=== PATIENT | male | born 1935 | race Caucasian/White ===

== ENCOUNTER → 2020-04-04 | Outpatient (CLI) | payer OTHER ==
[~2020-04-04] MED LIST: ASPIRIN81 M2; BETAPACE AF80 MG PO; DIFLORASONE DIA30 GM; HYDROXYZINE HCL25 M1; LOCOID 0.1% CRE15 GM; NAPROSYN500 MG PO; NEXIUM 40 MG CA40 M1; NORCO 5-325 TA1 EACH PO; SORINE 80 MG TA80 M1; TAMSULOSIN HCL0.4 M1 PO; TRILIPIX135 MG; ZOFRAN ODT4 MG PO
== END ==
LOC: SJCVCIMAG 08:56
PROVIDERS: ATTEND Internal Medicine
DX: R94.31 Abnormal electrocardiogram [ECG] [EKG] (principal); I08.8 Other rheumatic multiple valve diseases; I28.1 Aneurysm of pulmonary artery; I10 Essential (primary) hypertension; I65.23 Occlusion and stenosis of bilateral carotid arteries; I49.3 Ventricular premature depolarization; G47.33 Obstructive sleep apnea (adult) (pediatric); Z95.2 Presence of prosthetic heart valve; Z86.79 Personal history of other diseases of the circulatory system; Z90.49 Acquired absence of other specified parts of digestive tract; Z79.899 Other long term (current) drug therapy

== ENCOUNTER 2020-10-02 11:33 | Emergency (ER) | payer OTHER ==
[~2020-10-02] VITALS: Ht 175.3 cm; Wt 81.7 kg
[2020-10-02 12:36] LABS: APTT 25.5 Seconds (24.5-32.8); PROTIME 10.6 Seconds (9.3-11.4)
[2020-10-02 12:40] LABS: ANION GAP 7 mmol/L (7-16); BUN 24 mg/dL (7-18); CALCIUM 8.7 mg/dL (8.5-10.1); CHLORIDE 106 mmol/L (98-107); CO2 27 mmol/L (21-32); CREATININE 1.2 mg/dL (0.7-1.3); GLUCOSE 117 mg/dL (74-106); POTASSIUM 3.8 mmol/L (3.5-5.1); SODIUM 140 mmol/L (136-145)
[2020-10-02 12:42] LABS: ALBUMIN 2.7 g/dL (3.4-5.0); DIRECT BILIRUBIN 0.1 mg/dL (<0.1-0.2); LIPASE 101 U/L (73-393); SGOT 22 U/L (15-37); SGPT 28 U/L (30-65); TOTAL BILIRUBIN 0.6 mg/dL (0.2-1.0); TOTAL PROTEIN 6.3 g/dL (6.4-8.2); TROPONIN-I <0.06 ng/mL (<0.06)
[2020-10-02] MEDS ORDERED: TAMSULOSIN HCL0.4 MG PO (12:49)
[2020-10-02] MEDS ORDERED: LOPRESSOR50 PO (12:49)
--- NOTE | 2020-10-02 12:49 | EKG ---
[facility] [place] [address] ELECTROCARDIOGRAM REPORT Name: AILYNALYCIAJONISTELLA W Room #: PRE [facility]..#: [id number] Admission: Attend Phys: Discharge: Date of : 35 Report #: [id number] THIS REPORT FOR: cc: Dano XIE,Roland Matson II,Roland Aguilar,Dmitri SANTOS [facility] ~ THIS REPORT FOR: //name// [facility] ED Test Date: 2020-10-02 Test Time: 11:42:27 Pat Name: STELLA GLORIA Department: Room: Gender: M Manager Acute: KARTHIKEYAN : 1935 Requested By: Camille Uribe Order Number: [id number] MD: Dmitri Aguilar Measurements Intervals Mentor Rate: 69 P: -2 SD: 216 QRS: -44 QRSD: 137 T: 56 QT: 431 QTc: 462 Interpretive Statements Sinus rhythm Borderline prolonged SD interval Nonspecific IVCD with LAD Probable anteroseptal infarct, old Baseline wander in lead(s) V4 Compared to ECG 10/21/2012 11:29:41 Intraventricular conduction delay now present Myocardial infarct finding now present Sinus bradycardia no longer present Left-axis deviation no longer present Left ventricular hypertrophy no longer present Electronically Signed On 10-02-2020 12:49:34 PIN STICKER by Dmitri Aguilar [email or web address] <ELECTRONICALLY SIGNED> By: Dmitri Aguilar MD, FACC 10/02/20 1249 1142 1142 Dmitri Aguilar MD, [facility] /EPI
[2020-10-02] MEDS ORDERED: IRBESARTAN-HCT1 EACH PO (12:50)
[2020-10-02 15:29] LABS: ABSOLUTE NEUTROPHILS 3.5 thou/uL (1.4-8.2); BASOPHILS 0.2 % (0.0-2.0); EOSINOPHILS 3.7 % (0.0-3.0); HEMATOCRIT 37.9 % (42.0-52.0); HEMOGLOBIN 12.8 gm/dL (14.0-18.0); LYMPHOCYTES 18.6 % (24.0-44.0); MCH 32.5 pg (26.0-34.0); MCHC 33.9 g/dL (28.0-37.0); MONOCYTES 11.5 % (1.0-8.0); PLATELET COUNT 162 thou/uL (150-400); RBC 3.95 mil/uL (4.50-6.00); RDW 12.6 % (10.5-14.5); WBC 5.4 thou/uL (4.0-11.0)
[2020-10-02] MEDS ORDERED: KLOR-CON 1010 MEQ PO (16:12)
[2020-10-02] MEDS ORDERED: LASIX 20 MG TAB20 MG PO (16:12)
[2020-10-02 16:57] VITALS: BP 127/51
== END 2020-10-02 16:57 | disposition home or self-care (01) ==
LOC: ER 11:33
PROVIDERS: Nurse Practitioner Family
DX: I11.0 Hypertensive heart disease with heart failure (principal); I50.9 Heart failure, unspecified; Z90.49 Acquired absence of other specified parts of digestive tract; Z79.82 Long term (current) use of aspirin; Z79.899 Other long term (current) drug therapy; Z20.828 Contact with and (suspected) exposure to other viral communicable diseases

== ENCOUNTER → 2020-10-04 | Outpatient (CLI) | payer OTHER ==
[~2020-10-04] MED LIST changes: +IRBESARTAN-HCT1 EACH PO; +KLOR-CON 1010 MEQ PO; +LASIX 20 MG TAB20 MG PO; +LOPRESSOR50 PO; +TAMSULOSIN HCL0.4 MG PO
== END ==
LOC: SJCVCIMAG 13:40
PROVIDERS: ATTEND Internal Medicine
DX: I08.8 Other rheumatic multiple valve diseases (principal); R94.31 Abnormal electrocardiogram [ECG] [EKG]; I45.4 Nonspecific intraventricular block; I28.1 Aneurysm of pulmonary artery; I11.9 Hypertensive heart disease without heart failure; E78.5 Hyperlipidemia, unspecified; I65.23 Occlusion and stenosis of bilateral carotid arteries; I49.3 Ventricular premature depolarization; G47.33 Obstructive sleep apnea (adult) (pediatric); Z95.2 Presence of prosthetic heart valve; Z79.82 Long term (current) use of aspirin; Z86.79 Personal history of other diseases of the circulatory system; Z79.899 Other long term (current) drug therapy

== ENCOUNTER → 2020-10-25 | Outpatient (CLI) | payer OTHER ==
[~2020-10-25] MED LIST changes: +KLOR-CON M2020 MEQ PO; +TORSEMIDE20 MG PO
== END ==
LOC: LAB 09:31
PROVIDERS: ATTEND Internal Medicine
DX: Z01.812 Encounter for preprocedural laboratory examination (principal); J02.9 Acute pharyngitis, unspecified; Z20.828 Contact with and (suspected) exposure to other viral communicable diseases

== ENCOUNTER → 2020-10-30 | Outpatient (CLI) | payer OTHER ==
[~2020-10-30] VITALS: Ht 175.3 cm; Wt 76.7 kg
[2020-10-30 06:59] VITALS: BP 126/101
--- NOTE | 2020-10-30 08:53 | TEE ---
[email or web address] [address] TRANSESOPHAGEAL ECHOCARDIOGRAM Name: STELLA GLORIA Room #: REG GENO GonzalesSung#: [id number] Admission: 10/30/20 Attend Phys: Kayode Tinoco MD, Discharge: Date of : 35 Report #: [id number] THIS REPORT FOR: cc: Dano XIE,Roland Matson II,Roland Tinoco,Kayode Rain MD [facility] ~ APPROVED REPORT Study performed: 10/30/2020 07:49:24 EXAM: Transesophageal Echocardiogram Patient Location: Out-Patient Status: routine BSA: 1.93 HR: 83 bpm BP: 103/46 mmHg Rhythm: NSR Other Information Study Quality: Good Indications Aortic Valve Disease Mitral Valve Disease Procedure After obtaining informed consent, patient underwent transesophageal echo in the Obstetrics/Gynecology Nurse Holding. Type of Sedation : Conscious Sedation Sedation was administered by RN. Mellisa. Sedation was achieved intravenously with: Versed (3) Fentanyl (50) Transesophageal probe was inserted and advanced into esophagus without difficulty by Kayode Tinoco MD. Echo enhancement indication: R/O Septal defect. Echo enhancement agent administered: Agitated Saline The NATALIO was performed without complications. Throughout the procedure, the blood pressure, pulse oximetry, cardiac rhythm, and rate were monitored. The patient tolerated the procedure without adverse effects. Recovery from conscious sedation was uneventful and vital signs were stable. Left Ventricle [facility] [address] [place] [address] TRANSESOPHAGEAL ECHOCARDIOGRAM Name: STELLA GLORIA Room #: REG [facility]#: [id number] Admission: 10/30/20 Attend Phys: Kayode Tinoco, Discharge: Date of : 35 Report #: [id number] The left ventricle is normal size. There is normal LV segmental wall motion. Mild concentric left ventricular hypertrophy. Left ventricular systolic function is normal. LVEF is 60%. Right Ventricle The right ventricle is normal size. The right ventricular systolic function is normal. Atria Left atrium is dilated. No thrombus is visualized in the left atrium or appendage. No shunting noted with contrast bubble injection. Right atrium is mildly dilated. Aortic Valve #23mm Trifecta bioprosthetic aortic valve, thickened leaflets. Very small mobile echodensity adherent to valve, cannot rule out vegetation (Image 24, frame 11-13) Moderate to severe aortic regurgitation Mitral Valve The mitral valve is normal in structure. Moderate to severe central mitral regurgitation No evidence of mitral valve stenosis. Tricuspid Valve The tricuspid valve is normal in structure. Mild tricuspid regurgitation. Pulmonic Valve The pulmonary valve is normal in structure. Mild pulmonic regurgitation. Great Vessels The ascending aorta is mildly dilated (3.9cm). Mild atherosclerotic plaquing in the descending aorta. IVC is normal in size and collapses >50% with inspiration. 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 Pericardium There is no pericardial effusion. <Conclusion> Left ventricular systolic function is normal. There is normal LV segmental wall motion. LVEF 60%. Left atrium is dilated. No thrombus in the left atrium or appendage. No shunting noted with [facility] [address] [place] [address] TRANSESOPHAGEAL ECHOCARDIOGRAM Name: STELLA GLORIA Room #: REG [facility].#: [id number] Admission: 10/30/20 Attend Phys: Kayode Tinoco, Discharge: Date of : 35 Report #: [id number] contrast bubble injection. #23mm Trifecta bioprosthetic aortic valve, thickened leaflets. Very small mobile echodensity adherent to valve, cannot rule out vegetation (Image 24, frames 11-13) Moderate to severe aortic regurgitation The mitral valve is normal in structure. Moderate to severe central mitral regurgitation The ascending aorta is mildly dilated (3.9cm). 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 There is no pericardial effusion. <ELECTRONICALLY SIGNED> By: Kayode Tinoco MD, FACC 10/30/20851 1 1 Kayode Tinoco MD, FACC /INF
[2020-10-30 09:10] LABS: ABSOLUTE NEUTROPHILS 4.2 thou/uL (1.4-8.2); BASOPHILS 0.9 % (0.0-2.0); EOSINOPHILS 2.9 % (0.0-3.0); HEMATOCRIT 37.7 % (42.0-52.0); HEMOGLOBIN 12.4 gm/dL (14.0-18.0); LYMPHOCYTES 15.7 % (24.0-44.0); MCH 31.3 pg (26.0-34.0); MCHC 32.7 g/dL (28.0-37.0); MCV 95.7 fL (80.0-100.0); MONOCYTES 8.2 % (1.0-8.0); PLATELET COUNT 120 thou/uL (150-400); POLYS 72.3 % (36.0-66.0); RBC 3.94 mil/uL (4.50-6.00); RDW 12.3 % (10.5-14.5); WBC 5.8 thou/uL (4.0-11.0)
[2020-10-30 09:33] LABS: ALBUMIN 2.8 g/dL (3.4-5.0); ANION GAP 10 mmol/L (7-16); BUN 42 mg/dL (7-18); CALCIUM 8.4 mg/dL (8.5-10.1); CHLORIDE 109 mmol/L (98-107); CO2 24 mmol/L (21-32); CREATININE 1.3 mg/dL (0.7-1.3); GLUCOSE 99 mg/dL (74-106); POTASSIUM 4.3 mmol/L (3.5-5.1); SGOT 22 U/L (15-37); SGPT 22 U/L (30-65); SODIUM 143 mmol/L (136-145); TOTAL BILIRUBIN 0.4 mg/dL (0.2-1.0); TOTAL PROTEIN 6.2 g/dL (6.4-8.2)
== END | disposition home or self-care (01) ==
LOC: CATH 06:25
PROVIDERS: ATTEND Internal Medicine
DX: I08.3 Combined rheumatic disorders of mitral, aortic and tricuspid valves (principal); I70.0 Atherosclerosis of aorta; I11.0 Hypertensive heart disease with heart failure; I50.9 Heart failure, unspecified; E78.00 Pure hypercholesterolemia, unspecified; K21.9 Gastro-esophageal reflux disease without esophagitis; Z98.890 Other specified postprocedural states; Z79.899 Other long term (current) drug therapy; Z79.82 Long term (current) use of aspirin; Z90.49 Acquired absence of other specified parts of digestive tract; Z87.442 Personal history of urinary calculi; Z95.1 Presence of aortocoronary bypass graft; Z87.891 Personal history of nicotine dependence

== ENCOUNTER → 2020-11-30 | Outpatient (CLI) | payer OTHER | LOC: SJCVC 10:58 | PROVIDERS: ATTEND Internal Medicine | DX: G47.33 Obstructive sleep apnea (adult) (pediatric) (principal); I10 Essential (primary) hypertension; E78.5 Hyperlipidemia, unspecified; E78.00 Pure hypercholesterolemia, unspecified ==

== ENCOUNTER → 2020-11-30 | Outpatient (CLI) | payer OTHER ==
[~2020-11-30] MED LIST changes: +NEXIUM 40 MG CA40 M1 PO
== END ==
LOC: LAB 08:49
PROVIDERS: ATTEND Internal Medicine
DX: Z01.812 Encounter for preprocedural laboratory examination (principal); R06.02 Shortness of breath; Z20.822 Contact with and (suspected) exposure to COVID-19

== ENCOUNTER → 2020-12-05 | Outpatient (CLI) | payer OTHER ==
[~2020-12-05] VITALS: Ht 175.3 cm; Wt 77.1 kg
[2020-12-05 06:55] VITALS: BP 120/47
--- NOTE | 2020-12-05 08:53 | CATHLAB ---
[facility] [place] [address] INVASIVE PROCEDURE REPORT Name: STELLA GLORIA Room #: REG GENO Bee#: [id number] Admission: 12/05/20 Attend Phys: Kayode Tinoco MD, Discharge: Date of : 35 Report #: [id number] THIS REPORT FOR: cc: Dano XIE,Roland Matson II,Roland Tinoco,Kayode Rain MD [facility] ~ APPROVED REPORT Study performed: 12/05/2020 07:35:58 Patient Details Patient Status: Out-Patient Room #: The patient is a 85 year-old male Event Personnel Kayode Tinoco University Archivist, Faustina Ortiz RN RN, Rachna Vera Monitor, [place] RTR Scrub Procedures Performed Art Access - R femoral artery* 83339 Initial Mod Sed Same Phys/QHP Gr5y 785775 Coronary Angiography Only [id number] CORANG Supravalvular Aortography Injection [id number] ISVA Hemostasis w/ Mynx Indication Valvular heart disease Procedure Narrative The patient was brought electively to the Cardiac Catheterization Laboratory and was prepped and draped in a sterile manner. The Right Groin^ was infiltrated with 1% Lidocaine subcutaneous anesthesia. A PINNACLE 6FR Sheath #[id number] sheath was inserted into the RFA^. Coronary angiography was performed using coronary diagnostic catheters. The right coronary system was accessed and visualized with a JR 4 catheter. The left coronary system was accessed and visualized with a JL 4 catheter. An aortogram of the ascending aorta was performed. Closure device was deployed with a 6 Fr Mynx. The patient tolerated the procedure well and there were no complications associated with the procedure. There was no hematoma. Intraoperative Conscious Sedation Sedation start time: 07:51 Case end Time: 08:31 Fentanyl 50 mcg Versed 1 mg [facility] [place] [address] INVASIVE PROCEDURE REPORT Name: STELLA GLORIA Room #: [facility]#: [id number] Admission: 12/05/20 Attend Phys: Kayode Tinoco, Discharge: Date of : 35 Report #: [id number] Fluoro Time: 1.57 minutes Dose: DAP 4149.00 cGycm2 510 mGy Contrast Type and Amount: Visipaque 125 ml Coronary Angiography The patient's coronary anatomy is left dominant. [place] Artery Percent Stenosis Proximal aortography demonstrated a bioprosthetic aortic valve, severely insufficient. No aneurysmal dilatation of the aorta. No dissection. Diagnostic Cath Left Main Normal left main LAD Normal left anterior descending Diagonal 1 Normal first diagonal branch Diagonal 2 Normal second diagonal branch Circumflex Normal, dominant circumflex OM1 High, first marginal branch, normal OM2 Small to moderate second marginal branch, normal L PDA Normal posterior descending Right Coronary Small to moderate nondominant right coronary, angiographically normal Left Ventriculography Left Ventriculography was not performed. The left ventricle is normal in size with normal contractility. The left ventricular ejection fraction is estimated to be 60%. Left ventricular wall motion abnormalities are present. LV function was based on contrast within the LV but developed during aortography due to aortic insufficiency. Hemodynamics The aortic pressure is 119/45 mmHg with a mean of 77 mmHg. Conclusion 1. Normal global left ventricular systolic function. 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 Normal left main 3. Normal coronary vasculature. Left coronary dominant circulation <ELECTRONICALLY SIGNED> By: Kayode Tinoco MD, FACC 12/05/2052 1 1 Kayode Tinoco MD, FACC /INF
== END | disposition home or self-care (01) ==
LOC: CATH 06:28
PROVIDERS: ATTEND Internal Medicine
DX: I35.2 Nonrheumatic aortic (valve) stenosis with insufficiency (principal); I11.0 Hypertensive heart disease with heart failure; I50.32 Chronic diastolic (congestive) heart failure; K21.9 Gastro-esophageal reflux disease without esophagitis; E78.5 Hyperlipidemia, unspecified; E78.00 Pure hypercholesterolemia, unspecified; G47.33 Obstructive sleep apnea (adult) (pediatric); Z98.890 Other specified postprocedural states; Z79.899 Other long term (current) drug therapy; Z87.442 Personal history of urinary calculi; Z95.4 Presence of other heart-valve replacement; Z90.49 Acquired absence of other specified parts of digestive tract; Z79.82 Long term (current) use of aspirin

== ENCOUNTER → 2021-02-02 | Outpatient (CLI) | payer OTHER | LOC: SJCVC 09:44 | PROVIDERS: ATTEND Internal Medicine | DX: R94.31 Abnormal electrocardiogram [ECG] [EKG] (principal); I44.0 Atrioventricular block, first degree; I45.4 Nonspecific intraventricular block; R00.1 Bradycardia, unspecified; T82.897S Other specified complication of cardiac prosthetic devices, implants and grafts, sequela; I11.0 Hypertensive heart disease with heart failure; I50.32 Chronic diastolic (congestive) heart failure; E78.5 Hyperlipidemia, unspecified; I28.1 Aneurysm of pulmonary artery; G47.33 Obstructive sleep apnea (adult) (pediatric); E78.00 Pure hypercholesterolemia, unspecified; Z79.82 Long term (current) use of aspirin; Z95.4 Presence of other heart-valve replacement; Z79.899 Other long term (current) drug therapy; Z72.89 Other problems related to lifestyle; Z99.89 Dependence on other enabling machines and devices; Y71.2 Prosthetic and other implants, materials and accessory cardiovascular devices associated with adverse incidents ==

== ENCOUNTER → 2021-06-06 | Outpatient (CLI) | payer OTHER | LOC: SJCVC 13:26 | PROVIDERS: ATTEND Internal Medicine | DX: R94.31 Abnormal electrocardiogram [ECG] [EKG] (principal); I44.7 Left bundle-branch block, unspecified; I44.0 Atrioventricular block, first degree; R00.1 Bradycardia, unspecified; T82.897S Other specified complication of cardiac prosthetic devices, implants and grafts, sequela; I11.0 Hypertensive heart disease with heart failure; I50.32 Chronic diastolic (congestive) heart failure; E78.5 Hyperlipidemia, unspecified; I28.1 Aneurysm of pulmonary artery; G47.33 Obstructive sleep apnea (adult) (pediatric); E78.00 Pure hypercholesterolemia, unspecified; Z95.4 Presence of other heart-valve replacement; Z90.49 Acquired absence of other specified parts of digestive tract; Z79.82 Long term (current) use of aspirin; Z79.899 Other long term (current) drug therapy; Z82.49 Family history of ischemic heart disease and other diseases of the circulatory system; Y83.8 Other surgical procedures as the cause of abnormal reaction of the patient, or of later complication, without mention of misadventure at the time of the procedure ==

== ENCOUNTER → 2021-12-07 | Outpatient (CLI) | payer OTHER | LOC: SJCVCIMAG 10:13 | PROVIDERS: ATTEND Internal Medicine | DX: I44.0 Atrioventricular block, first degree (principal); I44.7 Left bundle-branch block, unspecified; R94.31 Abnormal electrocardiogram [ECG] [EKG]; I50.32 Chronic diastolic (congestive) heart failure; I11.0 Hypertensive heart disease with heart failure; E78.5 Hyperlipidemia, unspecified; I28.1 Aneurysm of pulmonary artery; G47.33 Obstructive sleep apnea (adult) (pediatric); E78.00 Pure hypercholesterolemia, unspecified; Z95.4 Presence of other heart-valve replacement; Z72.89 Other problems related to lifestyle; Z79.82 Long term (current) use of aspirin; Z79.899 Other long term (current) drug therapy; Z82.49 Family history of ischemic heart disease and other diseases of the circulatory system ==